=== PATIENT | female | born 1955 | race Caucasian/White ===

== ENCOUNTER 2019-04-21 22:47 | Emergency (ER) | payer BC, OTHER ==
[~2019-04-21] VITALS: Ht 149.8 cm; Wt 54.9 kg
--- NOTE | 2019-04-21 23:10 | ED General ---
General Chief Complaint: Dizziness/Syncope Stated Complaint: ELEVATED BP,DIZZINESS Nursing Triage Note: Patient states that her blood pressure has been high the last couple of days. Patient also states that she has an intermittent headache and dizziness. Patient does have a blood pressure machine at home and had gotten high readings so she came to ER to be seen. Nursing Sepsis Screen: No Definite Risk Source of Information: Patient Exam Limitations: No Limitations History of Present Illness Date Seen by Provider: Apr 21, 2019 Time Seen by Provider: 23:08 Initial Comments Patient complains of elevated blood pressure for the last few days. Systolic was greater than 200 prior to arrival. She reports feeling lightheaded and dizzy. She also feels flushed. She has a mild headache. No speech or gait problems. She takes losartan/hctz every morning for her blood pressure Allergies and Home Medications Allergies Coded Allergies: No Known Drug Allergies (Unverified , 04/21/19) Home Medications Amlodipine Besylate 5 Mg Tablet, 5 MG PO DAILY Prescribed by: PAUL GREENWOOD on 04/22/19 0008 Patient Home Medication List Home Medication List Reviewed: Yes Review of Systems Review of Systems Constitutional: dizziness; No fever; malaise EENTM: no symptoms reported Respiratory: no symptoms reported Cardiovascular: no symptoms reported Gastrointestinal: no symptoms reported Genitourinary: no symptoms reported Musculoskeletal: no symptoms reported Psychiatric/Neurological: Headache All Other Systems Reviewed Negative Unless Noted: Yes Past Goktvws-Ighwby-Uvtvhm Hx Patient Social History Alcohol Use: Denies Use Recreational Drug Use: No Smoking Status: Never a Smoker Recent Foreign Travel: No Contact w/Someone Who Travel: No Recent Infectious Disease Expo: No Recent Hopitalizations: No Physical Abuse: No Sexual Abuse: No Mistreated: No Fear: No Seasonal Allergies Seasonal Allergies: No Past Medical History Surgeries: Yes Hysterectomy Respiratory: No Cardiac: Yes Hypertension Neurological: No Genitourinary: No Gastrointestinal: No Musculoskeletal: No Endocrine: No HEENT: No Cancer: No Psychosocial: No Integumentary: No Physical Exam Vital Signs Vital Signs - First Documented 04/21/19 23:00 Temp 36.8 Pulse 67 Resp 18 B/P (MAP) 176/85 (115) Pulse Ox 98 O2 Delivery Room Air Capillary Refill : Less Than 3 Seconds Height, Weight, BMI Height: '" Weight: lbs. oz. 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 Norm as Tested Skin: Normal Color, Warm/Dry Progress/Results/Core Measures Suspected Sepsis Recent Fever Within 48 Hours: No Infection Criteria Present: None New/Unexplained Altered Menta: No Sepsis Screen: No Definite Risk SIRS Temperature: Pulse: 67 Respiratory Rate: 18 Laboratory Tests 04/21/19 23:40: White Blood Count 6.4 Blood Pressure 176 /85 Mean: 115 Laboratory Tests 04/21/19 23:40: Creatinine 0.92, Platelet Count 294, Total Bilirubin 0.3 Results/Orders Lab Results Laboratory Tests Test 04/21/19 23:40 Range/Units White Blood Count 6.4 4.3-11.0 10^3/uL Red Blood Count 4.29 L 4.35-5.85 10^6/uL Hemoglobin 13.1 11.5-16.0 G/DL Hematocrit 37 35-52 % Mean Corpuscular Volume 87 80-99 FL Mean Corpuscular Hemoglobin 31 25-34 PG Mean Corpuscular Hemoglobin Concent 35 32-36 G/DL Red Cell Distribution Width 11.5 10.0-14.5 % Platelet Count 294 130-400 10^3/uL Mean Platelet Volume 9.2 7.4-10.4 FL Neutrophils (%) (Auto) 66 42-75 % Lymphocytes (%) (Auto) 27 12-44 % Monocytes (%) (Auto) 5 0-12 % Eosinophils (%) (Auto) 1 0-10 % Basophils (%) (Auto) 0 0-10 % Neutrophils # (Auto) 4.3 1.8-7.8 X 10^3 Lymphocytes # (Auto) 1.8 1.0-4.0 X 10^3 Monocytes # (Auto) 0.3 0.0-1.0 X 10^3 Eosinophils # (Auto) 0.0 0.0-0.3 10^3/uL Basophils # (Auto) 0.0 0.0-0.1 10^3/uL Sodium Level 129 L 135-145 MMOL/L Potassium Level 4.1 3.6-5.0 MMOL/L Chloride Level 93 L 98-107 MMOL/L Carbon Dioxide Level 25 21-32 MMOL/L Anion Gap 11 5-14 MMOL/L Blood Urea Nitrogen 13 7-18 MG/DL Creatinine 0.92 0.60-1.30 MG/DL Estimat Glomerular Filtration Rate > 60 BUN/Creatinine Ratio 14 Glucose Level 121 H 70-105 MG/DL Calcium Level 9.4 8.5-10.1 MG/DL Corrected Calcium 9.2 8.5-10.1 MG/DL Magnesium Level 1.9 1.6-2.4 MG/DL Total Bilirubin 0.3 0.1-1.0 MG/DL Aspartate Amino Transf (AST/SGOT) 26 5-34 U/L Alanine Aminotransferase (ALT/SGPT) 26 0-55 U/L Alkaline Phosphatase 58 40-136 U/L Troponin I < 0.30 <0.30 NG/ML Total Protein 7.5 6.4-8.2 GM/DL Albumin 4.3 3.2-4.5 GM/DL My Orders Orders - PAUL GREENWOOD MD Amlodipine Tablet (Norvasc Tablet) (04/22/19 09:00) Cbc With Automated Diff (04/21/19 23:05) Comprehensive Metabolic Panel (04/21/19 23:05) Magnesium (04/21/19 23:05) Troponin I Fs (04/21/19 23:05) Ekg Tracing (04/21/19 23:05) Chest 1 View Ap/Pa Only (04/21/19 23:05) Amlodipine Tablet (Norvasc Tablet) (04/21/19 23:15) Vital Signs/I&O 04/21/19 23:00 Temp 36.8 Pulse 67 Resp 18 B/P (MAP) 176/85 (115) Pulse Ox 98 O2 Delivery Room Air Capillary Refill : Less Than 3 Seconds Blood Pressure Mean: 115 POS Progress Note : Time: 00:06 Progress Note Blood pressure down to 149/59. Patient resting comfortably and feels better. Test results discussed patient. We will prescribe amlodipine 5 mg daily in addition to her losartan. Follow-up primary care physician this week. ECG Initial ECG Impression Date: Apr 21, 2019 Initial ECG Impression Time: 23:29 Initial ECG Rate: 57 Initial ECG Rhythm: Normal Sinus Initial ECG Intervals: Normal Initial ECG Impression: Normal Initial ECG Comparisson: No Previous ECG Available Departure Impression Primary Impression: Hypertensive urgency Disposition: 01 HOME, SELF-CARE Condition: Stable Departure-Patient Inst. Decision time for Depature: 00:06 Referrals: [facility] (PCP/Family) Primary Care Physician Patient Instructions: High Blood Pressure in Adults Add. Discharge Instructions: Take amlodipine in addition to your losartan. See your doctor this week for follow-up. He may want to do further testing on a for your blood pressure. He also may want to try a different medicine that I prescribed. Also your sodium needs to be rechecked in the near future as it is a little low. All discharge instructions reviewed with patient and/or family. Voiced understanding. Scripts Amlodipine Besylate (Amlodipine Besylate) 5 Mg Tablet 5 MG PO DAILY, #14 TAB Prov: PAUL GREENWOOD MD 04/22/19 PAUL GREENWOOD MD Apr 21, 2019 23:10 POS
[2019-04-21] MEDS ORDERED: amLODIPine 5 MG (NORVASC) TAB ONE (23:15)
[2019-04-21 23:44] LABS: BASOPHILS % (AUTO) 0 % (0-10); EOSINOPHILS % (AUTO) 1 % (0-10); HEMATOCRIT 37 % (35-52); HEMOGLOBIN 13.1 G/DL (11.5-16.0); LYMPHOCYTES # (AUTO) 1.8 X 10^3 (1.0-4.0); LYMPHOCYTES % (AUTO) 27 % (12-44); MEAN CORPUSCULAR HEMOGLOBIN 31 PG (25-34); MEAN CORPUSCULAR HGB CONC 35 G/DL (32-36); MEAN CORPUSCULAR VOLUME 87 FL (80-99); MEAN PLATELET VOLUME 9.2 FL (7.4-10.4); MONOCYTES # (AUTO) 0.3 X 10^3 (0.0-1.0); MONOCYTES % (AUTO) 5 % (0-12); NEUTROPHILS # (AUTO) 4.3 X 10^3 (1.8-7.8); NEUTROPHILS % (AUTO) 66 % (42-75); PLATELET COUNT 294 10^3/uL (130-400); RED CELL DISTRIBUTION WIDTH 11.5 % (10.0-14.5); WHITE BLOOD COUNT 6.4 10^3/uL (4.3-11.0)
[2019-04-22 00:05] LABS: ALANINE AMINOTRANSFERASE 26 U/L (0-55); ALKALINE PHOSPHATASE 58 U/L (40-136); BILIRUBIN,TOTAL 0.3 MG/DL (0.1-1.0); BUN/CREATININE RATIO 14; CALCIUM 9.4 MG/DL (8.5-10.1); CARBON DIOXIDE 25 MMOL/L (21-32); CHLORIDE 93 MMOL/L (98-107); CREATININE SERUM 0.92 MG/DL (0.60-1.30); GFR ESTIMATED > 60; GLUCOSE 121 MG/DL (70-105); MAGNESIUM 1.9 MG/DL (1.6-2.4); POTASSIUM 4.1 MMOL/L (3.6-5.0); SODIUM 129 MMOL/L (135-145)
[2019-04-22 00:06] LABS: ALBUMIN 4.3 GM/DL (3.2-4.5); TOTAL PROTEIN 7.5 GM/DL (6.4-8.2)
[2019-04-22] MEDS ORDERED: AMLO5TAB9 PO (00:08)
[2019-04-22 00:11] VITALS: BP 155/63
--- NOTE | 2019-04-22 06:31 | Diagnostic Imaging Report ---
INDICATION: Hypertension and dizziness. FINDINGS: The heart size, mediastinal configuration, and pulmonary vascularity are within normal limits. There is no pleural effusion, pneumothorax, or pneumonia. The osseous structures are unremarkable. IMPRESSION: No acute cardiopulmonary abnormality. Dictated by: Dictated on workstation # [id number]
[2019-04-22] MEDS ORDERED: amLODIPine 5 MG (NORVASC) TAB PO SCH (09:00)
== END 2019-04-22 00:11 | disposition home or self-care (01) ==
LOC: ER FS 22:51
DX: I16.0 Hypertensive urgency (principal); I10 Essential (primary) hypertension; Z90.710 Acquired absence of both cervix and uterus
CPT/HCPCS: 36415; 71045; 80053; 83735; 84484; 85025; 93005